=== PATIENT | female | born 1965 | race American Indian/Alaskan Native ===

== ENCOUNTER 2017-01-22 08:12 | Outpatient (CLI) | payer OTHER ==
--- NOTE | 2017-01-22 09:31 | Mammography Report ---
Screening mammogram: Routine views demonstrate a heterogeneously dense and symmetrically distributed fibroglandular pattern. This is 7.2 mm circumscribed nodule in the superolateral right breast just behind the areola a mild degree of patchy asymmetric fibroglandular-appearing tissue is identified in the medial right breast. No other significant findings. CAD used. Impression: Right breast asymmetries. Recommendation: This patient's prior studies are being requested for comparison. If no followup report is received in approximately one month proceed with additional spot compression imaging and ultrasound of the right breast. BI-RADS CATEGORY: 0 = Needs additional imaging evaluation ACR BI-RADS MAMMOGRAPHIC CODES: 0 = Needs additional imaging evaluation; 1 = Negative; 2 = Benign; 3 = Probably benign; 4 = Suspicious; 5 = Malignant; 6 = Known biopsy-proven malignancy COMMENT: 1. Dense breast tissue, i.e., adenosis, fibrocystic changes, etc., may obscure an underlying neoplasm. 2. Approximately 10% of cancers are not detected with mammography. 3. A negative mammography report should not delay biopsy if a clinically suspicious mass is present.
== END 2017-01-22 08:13 | disposition home or self-care (01) ==
LOC: MAMMO 08:12 → EDSEX 08:12 → MAMMO 08:13
PROVIDERS: ATTEND Obstetrics & Gynecology Gynecology
DX: Z12.31 Encounter for screening mammogram for malignant neoplasm of breast (principal)
CPT/HCPCS: 77067; G0202

== ENCOUNTER 2018-01-28 06:58 | Outpatient (CLI) | payer OTHER ==
--- NOTE | 2018-01-28 14:27 | Mammography Report ---
BILATERAL DIGITAL SCREENING MAMMOGRAM with CAD : 01/28/18 06:58:00 CLINICAL: Routine screening. COMPARISON:01/22/17 and 10/01/15 FINDINGS: The breasts are heterogeneously dense, which may obscure small masses. No mass, architectural distortion or suspicious calcifications. IMPRESSION: No mammographic evidence of malignancy. BI-RADS CATEGORY: 2 -- Benign RECOMMENDATION: Routine mammographic screening in one year. COMMENT: Patient follow-up letters are generated by our [employer] application.
== END 2018-01-28 06:59 | disposition home or self-care (01) ==
LOC: MAMMO 06:58
PROVIDERS: ATTEND Obstetrics & Gynecology Gynecology
DX: Z12.31 Encounter for screening mammogram for malignant neoplasm of breast (principal)
CPT/HCPCS: 77067

== ENCOUNTER 2019-02-03 06:35 | Outpatient (CLI) | payer OTHER ==
--- NOTE | 2019-02-03 08:12 | Mammography Report ---
Bilateral mammogram: Compared to 01/28/18. CAD study utilized. Findings: Predominance adipose tissue bilaterally. Benign density right breast. No microcalcifications. Normal axilla. Impression: Benign findings. Annual followup recommended. BI-RADS CATEGORY: 2 = Benign ACR BI-RADS MAMMOGRAPHIC CODES: 0 = Needs additional imaging evaluation; 1 = Negative; 2 = Benign; 3 = Probably benign; 4 = Suspicious; 5 = Malignant; 6 = Known biopsy-proven malignancy COMMENT: 1. Dense breast tissue, i.e., adenosis, fibrocystic changes, etc., may obscure an underlying neoplasm. 2. Approximately 10% of cancers are not detected with mammography. 3. A negative mammography report should not delay biopsy if a clinically suspicious mass is present. COMMENT: Patient follow-up letters are generated in [employer].
== END 2019-02-03 06:36 | disposition home or self-care (01) ==
LOC: MAMMO 06:35
PROVIDERS: ATTEND Internal Medicine
DX: Z12.31 Encounter for screening mammogram for malignant neoplasm of breast (principal)
CPT/HCPCS: 77067